=== PATIENT | female | born 1960 | race Caucasian/White ===

== ENCOUNTER → 2016-06-20 | Outpatient (CLI) | payer BC ==
--- NOTE | 2016-06-21 13:51 | MM ---
Reason for exam: screening (asymptomatic). Last mammogram was performed 2 years and 5 months ago. History: Patient is postmenopausal and is nulliparous. Physical Findings: A clinical breast exam by your physician is recommended on an annual basis and results should be correlated with mammographic findings. MG Screening Mammo w CAD Bilateral CC and MLO view(s) were taken. Prior study comparison: January 13, 2014, bilateral MG screening mammo w CAD. April 23, 2007, bilateral digital screening mammogram. The breast tissue is almost entirely fat. Finding: There are typically benign calcifications in both breasts. No significant changes in finding since January 13, 2014 and April 23, 2007. ASSESSMENT: Benign, BI-RAD 2 RECOMMENDATION: Routine screening mammogram of both breasts in 1 year.
== END | disposition home or self-care (01) ==
LOC: RADMAMWWP 07:53
PROVIDERS: ATTEND Family Medicine
DX: Z12.31 Encounter for screening mammogram for malignant neoplasm of breast (principal)

== ENCOUNTER → 2018-01-30 | Outpatient (CLI) | payer BC ==
[~2018-01-30] MED LIST: REGADENOSON 0.4 MG/5 ML SYRINGE IV ONE
--- NOTE | 2018-01-30 11:17 | NM ---
EXAMINATION TYPE: NM stress lexiscan cardiolite DATE OF EXAM: 01/30/2018 COMPARISON: NONE HISTORY: Abnormal EKG per order. History of hypertension presents with chest pain and difficulty erica thing and palpitations per patient. TECHNIQUE: After the intravenous administration of 10.7 mCi Tc 99m Sestamibi - Cardiolite resting SP ECT images acquired 45 minutes post injection. The patient received 0.4mg Lexiscan, 25.3 mCi Tc 99m Sestamibi - Stress images obtained [address] injection FINDINGS: Review of stress and rest SPECT images demonstrates no distinct perfusion abnormality. Gated analysi s shows normal wall motion with an estimated left ventricular ejection fraction of 61 %. IMPRESSION: No scintigraphic evidence for reversible ischemia.
--- NOTE | 2018-01-31 12:41 | ECHOF ---
Referral Reason:R07.9 / R94.31 - Chest Pain / Abnormal EKG MEASUREMENTS -------- HEIGHT: 162.6 cm WEIGHT: 99.8 kg BP: RVIDd: 3.1 cm (< 3.3) IVSd: 1.2 cm (0.6 - 1.1) LVIDd: 4.8 cm (3.9 - 5.3) LVPWd: 1.1 cm (0.6 - 1.1) IVSs: 1.3 cm LVIDs: 3.5 cm LVPWs: 1.4 cm LAESV Index (A-L): 29.86 ml/m Ao Diam: 2.7 cm (2.0 - 3.7) AV Cusp: 1.9 cm (1.5 - 2.6) LA Diam: 3.4 cm (2.7 - 3.8) MV EXCURSION: 17.354 mm (> 18.000) MV EF SLOPE: 116 mm/s (70 - 150) EPSS: 0.6 cm MV E Ronnie: 0.92 m/s MV DecT: 266 ms MV A Ronnie: 0.69 m/s MV E/A Ratio: 1.34 RAP: 5.00 mmHg RVSP: 9.49 mmHg FINDINGS -------- Resting bradycardia (HR<60bpm). This was a technically adequate study. The left ventricular size is normal. There is mild concentric left ventricular hypertrophy. Overa ll left ventricular systolic function is normal with, an EF between 55 - 60 %. The right ventricle is normal in size and function. LA is midly dilated 29-33ml/m2. The right atrium is normal in size. There is mild aortic valve sclerosis. There is no evidence of aortic regurgitation. There is no e vidence of aortic stenosis. The mitral valve leaflets are mildly thickened. There is trace to mild mitral regurgitation. Trace tricuspid regurgitation present. Right ventricular systolic pressure is normal at < 35 mmHg. There is no evidence of pulmonary hypertension. The pulmonic valve was not well visualized. The aortic root size is normal. Normal inferior vena cava with normal inspiratory collapse consistent with estimated right atrial pre ssure of 5 mmHg. There is no pericardial effusion. CONCLUSIONS -------- 1. Resting bradycardia (HR<60bpm). 2. This was a technically adequate study. 3. The left ventricular size is normal. 4. There is mild concentric left ventricular hypertrophy. 5. Overall left ventricular systolic function is normal with, an EF between 55 - 60 %. 6. LA is midly dilated 29-33ml/m2. 7. There is mild aortic valve sclerosis. 8. The mitral valve leaflets are mildly thickened. 9. There is trace to mild mitral regurgitation. 10. Trace tricuspid regurgitation present. 11. Right ventricular systolic pressure is normal at < 35 mmHg. 12. There is no evidence of pulmonary hypertension. 13. The pulmonic valve was not well visualized. 14. The aortic root size is normal. 15. There is no pericardial effusion. FOOD TASTER: Kenan Sipvey RDCS
--- NOTE | 2018-02-01 11:10 | EST ---
EXERCISE STRESS DATE OF SERVICE: 01/30/2018 AGE: 57 SEX: Female HT: 64" WT: 220 pounds PROTOCOL: Lexiscan Cardiolite STAGE: DURATION OF EXERCISE: HEART RATE REST: 57 BLOOD PRESSURE REST: 134/80 MAXIMUM HEART RATE ACHIEVED: 81 MAXIMUM BLOOD PRESSURE: 134/80 85% MPHR: 100% MPHR: METS: INDICATIONS: Abnormal EKG. CLINICAL INFORMATION: A Lexiscan nuclear study was performed. Peak heart rate of 81, was achieved. Maximum blood pressure of 134/80 mmHg was noted. Resting EKG shows normal sinus rhythm with normal WV interval and QRS duration and normal ST-T waves. No ST-segment depression suggestive of ischemia is noted. The results of the nuclear study will follow. MMODL / IJN: [id number] /
--- NOTE | 2018-02-18 19:10 | P.HOLTER ---
Diagnosis Palpitations 24-hour Holter monitor shows sinus rhythm, heart rates are from 53 207 beats a minute average 71 beats a minute occasional PVCs 3 very short runs of atrial tachycardia
== END | disposition home or self-care (01) ==
LOC: RADNMMAIN 08:04
PROVIDERS: ATTEND Family Medicine
DX: I47.1 Supraventricular tachycardia (principal); R07.9 Chest pain, unspecified; R94.31 Abnormal electrocardiogram [ECG] [EKG]
CPT/HCPCS: 93017; 93225; 93226; 93306; 78452; A9500; J2785

== ENCOUNTER → 2018-02-04 | Outpatient (CLI) | payer BC ==
[2018-02-04 08:27] LABS: HCT 38.3 % (34.0-46.0); Hypochromasia Slight; MCH 32.1 pg (25.0-35.0); MCHC 31.4 g/dL (31.0-37.0); MCV 102.1 fL (80.0-100.0); Macrocytosis Slight; Mean Platelet Volume 7.3; Platelet Count 232 k/uL (150-450); RBC 3.75 m/uL (3.80-5.40); RDW 14.9 % (11.5-15.5)
[2018-02-04 08:31] LABS: INR 0.9 (<1.2); Partial Thromboplastin Time 23.2 sec (22.0-30.0); Prothrombin Time 9.9 sec (9.0-12.0)
[2018-02-04 08:42] LABS: ALT 28 U/L (9-52); AST 25 U/L (14-36); Albumin 3.3 g/dL (3.5-5.0); Alkaline Phosphatase 77 U/L (38-126); Anion Gap 5 mmol/L; Blood Urea Nitrogen 19 mg/dL (7-17); Calcium 8.6 mg/dL (8.4-10.2); Carbon Dioxide 25 mmol/L (22-30); Chloride 111 mmol/L (98-107); Glucose 77 mg/dL (74-99); Potassium 4.5 mmol/L (3.5-5.1); Sodium 141 mmol/L (137-145); Total Bilirubin 0.3 mg/dL (0.2-1.3)
== END ==
LOC: LABPAT 07:29
PROVIDERS: ATTEND Orthopaedic Surgery
DX: Z01.812 Encounter for preprocedural laboratory examination (principal); M16.12 Unilateral primary osteoarthritis, left hip
CPT/HCPCS: 36415; 80053; 85027; 85610; 85730; 87070

== ENCOUNTER 2018-02-11 06:33 | Inpatient (IN) | payer BC ==
[2018-02-07 08:54] VITALS: BMI 37.8
[~2018-02-11 06:33] MED LIST changes: +ACETAMINOPHEN TAB 500 MG TAB PO ONE; +LIDOCAINE 1% 20 ML VIAL (10MG/ML) FOR IV START INTRADERMA PRN; +MELOXICAM 7.5 MG TAB PO ONE; +MIDAZOLAM (PF) 2 MG/2 ML VIAL IV PRN; -REGADENOSON 0.4 MG/5 ML SYRINGE IV ONE; +TRANEXAMIC ACID 1,000 MG in SODIUM CHLORIDE 0.9% 50 ML IVPB ONE; +ceFAZolin IN SWFI 2 GM/20 ML SYRINGE IVP ONE; +fentaNYL (PF) 50 MCG/ML 2 ML AMP IV PRN
[2018-02-11] MEDS ORDERED: ROPIVACAINE 246.25 MG, EPINEPHrine 0.5 MG, KETOROLAC 30 MG, cloNIDine HCL/PF 80 MCG, WA... MISCELLANE ONE ×10 (07:50→08:51)
[2018-02-11] MEDS ORDERED: HYDROcodone/APAP 5-325MG 1 EACH TAB PO PRN (09:09)
[2018-02-11] MEDS ORDERED: MAGNESIUM HYDROXIDE 2,400 MG/10 ML CUP PO PRN (09:09)
[2018-02-11] MEDS ORDERED: HYDROmorphone 0.5 MG/0.5 ML SYRINGE IVP PRN ×2 (09:09)
[2018-02-11] MEDS ORDERED: DIAZEPAM 5 MG TAB PO PRN (09:09)
[2018-02-11] MEDS ORDERED: hydrOXYzine PAMOATE 25 MG CAP PO PRN (09:09)
[2018-02-11] MEDS ORDERED: HYDROmorphone 1 MG/ML 1 ML SYRINGE IVP PRN (09:09)
[2018-02-11] MEDS ORDERED: NALOXONE 0.4 MG/ML 1 ML VIAL IV PRN (09:09)
[2018-02-11] MEDS ORDERED: SODIUM CHLORIDE 0.9% 1,000 ML IV SCH (09:15)
[2018-02-11] MEDS: LACTATED RINGERS 1,000 ML IV SCH ×3 (11:50→20:16)
[2018-02-11] MEDS ORDERED: ONDANSETRON 4 MG/2 ML VIAL IVP ONE (11:58)
[2018-02-11] MEDS ORDERED: DEXAMETHASONE SOD PHOSPHATE 10 MG/ML 1 ML VIAL IV ONE (11:59)
[2018-02-11] MEDS ORDERED: SODIUM CHLORIDE 0.9% 100 ML BAG ONE (12:18)
[2018-02-11] MEDS ORDERED: SODIUM CHLORIDE 0.9% IRRIG 1,000 ML BTL IRRIGATION ONE (12:18)
[2018-02-11] MEDS ORDERED: TRANEXAMIC ACID 1,000 MG/10 ML VIAL ONE (12:18)
[2018-02-11] MEDS ORDERED: HEPARIN SODIUM,PORCINE 10,000 UNIT/ML 1 ML VIAL ONE (12:18)
[2018-02-11] MEDS ORDERED: fentaNYL (PF) 50 MCG/ML 2 ML AMP ONE (12:18)
[2018-02-11] MEDS ORDERED: MIDAZOLAM 2 MG/2 ML VIAL ONE (12:18)
[2018-02-11] MEDS ORDERED: PROPOFOL 10 MG/ML 20 ML VIAL IV ONE (12:18)
[2018-02-11] MEDS ORDERED: ceFAZolin 3,000 MG in SODIUM CHLORIDE 0.9% IRRIGATIO 3,000 ML IRRIGATION ONE (12:59)
[2018-02-11] MEDS ORDERED: LACTATED RINGERS 1,000 ML IV ONE (14:17)
--- NOTE | 2018-02-11 14:26 | P.OP ---
Date of Procedure: 02/11/18 Preoperative Diagnosis: Severe osteoarthritis left hip Postoperative Diagnosis: Severe osteoarthritis left hip Procedure(s) Performed: Left total hip arthroplasty with a direct anterior approach Implants: Knight and nephew Polarstem size 6 standard Knight & Nephew R3, 3 hole acetabular shell, 48 mm Knight [employer] Nephew reflection 6.5 mm cancellus screw, 20 mm 2 Knight [employer] Nephew R3, XLPE 20 acetabular liner Knight & Nephew Oxinium femoral head 32 m, -3 All components were press-fit. The articulation is Oxinium on polyethylene. Anesthesia: spinal Surgeon: Fercho Ba District Manager Primary Care Sales #1: Linda Palma Estimated Blood Loss (ml): 400 (141 mL returned with Cell Saver) Pathology: other (Femoral head) Condition: stable Disposition: PACU Indications for Procedure: After failure of conservative treatment we discussed the surgical and nonsurgical treatment options at length. Patient wishes to proceed with a total hip arthroplasty with a direct anterior approach. Complications specific to this procedure were discussed at length, including but not limited to infection, leg length discrepancy, dislocation, and nerve injury. Patient is aware of all these complications and informed consent was obtained Operative Findings: The operative findings are consistent with severe osteoarthritis of the left hip Description of Procedure: Patient was seen and evaluated in the preoperative area, consent was reviewed, and the surgical site was marked with a skin marker. Patient was then brought to the operating room and given prophylactic antibiotics intravenously. 1 g of Tranexamic acid was also given. A spinal anesthetic was administered by the anesthesia department. The patient was then placed on the [place] table with the bony prominences well-padded. The hip area was then prepped and draped in usual sterile fashion. A universal timeout was then performed, which confirmed the patient's name, surgical site, ALLERGIES, and procedure being performed. Next the incision site was located at 1 cm distal and 1 cm lateral to the anterior superior iliac spine. The skin and subcutaneous tissues were sharply incised. Incision was carefully dissected down to the fascia overlying the tensor fascia laquita muscle. This fascia was then incised in line with the incision. Next, using blunt finger dissection, the tensor fascia laquita muscle was dissected off its investing fascia. The muscle was then carefully retracted laterally with a cobra retractor over the lateral neck of the femur. Next, the circumflex vessels were identified and cauterized using the AquaMantis device. The anterior hip capsule was then exposed. The capsule was then opened and an inverted T fashion. Cobra retractors were then placed intracapsularly. The proximal femur was then visualized. The femoral neck was then osteotomized appropriate level above the lesser trochanter. Small amount of traction was placed with the [place] table. A small wedge of bone was then removed from the remaining femoral head. Next, using a corkscrew femoral head was easily removed from the acetabulum. On gross visual inspection, the femoral head had complete loss of articular cartilage in multiple periarticular osteophytes. Attention was then turned to the acetabulum. the acetabulum was exposed and any remaining labrum was excised. Sequential reaming of the acetabulum was performed using fluoroscopic guidance. When the appropriate size was reached, a trial was then placed. The position and fit of the trial was checked with fluoroscopy. The trial was then removed. Then, using fluoroscopic guidance, the final implant was impacted at 20 of anteversion and 40 of abduction, and fully seated in the acetabulum. 2 screws were then placed in the acetabulum. Again fluoroscopy was used to check position of the screws. Next, the liner was then impacted, with a 20 elevated liner located in the anterior superior quadrant. Component locking was confirmed. Attention was then directed to the femur. With the aid of the [place] table, the femur was externally rotated to approximately 130, extended, and abducted under the opposite leg. A side hook was then placed under the proximal femur, and the side hook elevator was used to elevate the proximal femur. Retractors were then placed. A capsular release was performed, as well as a release of the conjoined tendon, which afforded excellent visualization of the proximal femur. Next, a box osteotome was used to lateralize the proximal femur. A brush hand was then used to locate the femoral canal. Sequential broaching was then performed with appropriate size which afforded excellent fixation in the proximal femur. A trial was then placed with appropriate head and neck, and the hip was gently reduced with the aid of the [place] table. Fluoroscopy was then used to check position of the components, as well as to ensure equal leg lengths. The hip was then gently dislocated and the trials were then removed. Final implants were then impacted and the hip was again reduced. Final fluoroscopic x-rays confirmed that the components were in anatomic position, as well as equal leg lengths. The hip was also taken through range of motion, and found to be stable. The hip was then copiously irrigated with antibiotic solution with pulsatile lavage. The hip was then irrigated with Irrisept solution. The soft tissues were then injected with a ropivacaine solution, which consisted of 246.25 mg of ropivacaine, 0.5 mg of epinephrine, 30 mg of Toradol, 80 g of clonidine, and 48.45 mL of sterile water, for a total of 100 mL of fluid injected. A second dose of 1 g of Tranexamic acid was also given. the fascia was then closed with 2-0 strata fix suture. The subcutaneous tissue was closed with 3-0 Vicryl. The subcuticular tissue was closed with 3-0 strata fix suture. The skin was then closed with Dermabond glue and a sterile silver dressing. The patient was then transferred to the recovery room in stable condition. The operations administrative assistant MARK Houston was required due to the complexity of surgery, and the need for skilled campus administrative assistant for positioning, draping, exposure, retraction, and closure of the wound.
--- NOTE | 2018-02-11 14:50 | XR ---
EXAMINATION TYPE: XR Hip Limited LT DATE OF EXAM: 02/11/2018 COMPARISON: NONE HISTORY: 57-year-old female status post hip surgery, assess surgical alignment TECHNIQUE: AP portable view FINDINGS: Image shows placement of left hip total arthroplasty. Both acetabular cup and femoral short stemmed c omponents of the prosthesis appear well seated without periprosthetic fracture. Alignment grossly santo tomic. Soft tissue air related to recent operation. IMPRESSION: Uncomplicated postoperative appearance left total hip arthroplasty.
--- NOTE | 2018-02-11 16:14 | XR ---
EXAMINATION TYPE: XR Hip Limited LT, FL guidance operating room DATE OF EXAM: 02/11/2018 COMPARISON: NONE HISTORY: 57 year-old female left anterior total hip FINDINGS: Fluoroscopic images show placement of left hip total arthroplasty. A right hip total arthroplasty is partially visualized on the low AP view. FLUOROSCOPY Fluoroscopy time of 50 seconds was used during anterior left hip replacement. 2 image/s document/s t he procedure. IMPRESSION: Intraoperative fluoroscopy as above.
[2018-02-11] MEDS: HYDROcodone/APAP 5-325MG 1 EACH TAB PO PRN (18:40)
[2018-02-11] MEDS: ASPIRIN 325 MG TAB PO SCH (20:14)
[2018-02-11] MEDS: ceFAZolin IN SWFI 2 GM/20 ML SYRINGE IVP SCH (20:18)
[2018-02-11] MEDS ORDERED: LEVOTHYROXINE 50 MCG TAB PO SCH (21:00)
[2018-02-11] MEDS ORDERED: SENNOSIDES-DOCUSATE SODIUM 1 EACH TAB PO SCH (21:00)
[2018-02-11] MEDS ORDERED: clonazePAM 0.5 MG TAB PO SCH (21:00)
[2018-02-11] MEDS ORDERED: PROGESTERONE MICRONIZED 200 MG PO SCH (21:00)
--- NOTE | 2018-02-12 01:07 | CONS ---
CONSULTATION DATE OF SERVICE: 02/11/2018 REASON FOR CONSULTATION: Advice regarding fibromyalgia, hypertension, multiple medical issues requested by Dr. Ba. HISTORY OF PRESENT ILLNESS: This 57-year-old gentleman with a past medical history of multiple medical problems such as fibromyalgia, GERD, hypertension, DJD, hypothyroidism, underwent left total hip joint arthroplasty for severe DJD today by Dr. Ba. There is no history of fever, rigors or chills. No history of headache, loss of consciousness, chest pain, palpitations, hematochezia, melena, nausea and diarrhea at this time. The patient is followed by Dr. Paula in the outpatient setting. PAST MEDICAL HISTORY: Fibromyalgia, GERD, hypertension, DJD, sleep apnea, bariatric surgery, appendectomy. MEDICATIONS PRIOR TO ADMISSION: Home medications are: 1. Klonopin 0.5 mg q.h.s. 2. Progesterone 200 mg q.h.s. 3. Omeprazole 20 mg q.a.m. 4. Naprosyn 500 mg q.h.s. 5. Lisinopril 20 mg q.a.m. 6. Synthroid 50 mcg p.o. q.h.s. 7. Neurontin 300 mg p.o. daily. 8. Cymbalta 120 mg p.o. q.a.m. 9. Biotin 1 tablet p.o. 10.Biotin 150 mg. 11.Atenolol 100 mg p.o. q.a.m. 12.Senokot 1 tablet p.o. b.i.d. 13.Hydrocortisone 5 mg 1 tablets q.4h p.r.n. ALLERGIES: None. FAMILY HISTORY: Dementia, history of Parkinson's, diabetes mellitus. SOCIAL HISTORY: No history of smoking. No history of alcohol intake. REVIEW OF SYSTEMS: ENT: No diminished vision. No diminished hearing. CARDIOVASCULAR: No angina or palpitations. RESPIRATORY: As mentioned earlier. GI no nausea or vomiting. no dysuria. NERVOUS SYSTEMS: No numbness or weakness. ALLERGIES/IMMUNOLOGY: No asthma or hayfever. MUSCULOSKELETAL as mentioned earlier. HEMATOLOGY/ONCOLOGY: No history of anemia. ENDOCRINE: No history of diabetes or hypothyroidism. CONSTITUTIONAL: As mentioned earlier. Dermatology: Negative. Rheumatology: Negative. Psychiatry: As mentioned earlier. PHYSICAL EXAMINATION: The patient is alert and oriented times three. Pulse 66. Blood pressure 113/59, respirations 17, temp 98.2, pulse ox 97% on room air. HEENT: Conjunctivae normal. Oral mucosa moist. NECK: No jugular venous distention. CARDIOVASCULAR: S1, S2 muffled. RESPIRATORY: Breath sounds diminished in the bases. Few scattered rhonchi and crackles. ABDOMEN: Soft, nontender. No mass palpable. LEGS: Status post surgery. NERVOUS SYSTEM: Higher functions as mentioned earlier. Moves all 4 limbs. No focal motor deficits. SKIN: No ulcer, rash or bleeding. LABS: The previous labs are reviewed. New labs are not available. ASSESSMENT: 1. Status post left total hip joint arthroplasty. 2. History of fibromyalgia. 3. Hypertension. 4. History of gastroesophageal reflux disease. 5. Sleep apnea. 6. Hypothyroidism. 7. History of bariatric surgery. 8. History of degenerative joint disease. 9. History of depression. RECOMMENDATIONS AND DISCUSSION: In this 57-year-old woman who presented with multiple complex medical issues, at this time, I recommend to continue current medications, management and symptomatic treatment. We will initiate home dose of antihypertensive medications including Tenormin and DVT prophylaxis. Incentive spirometry. We will follow the patient closely. The patient may be asked to follow up with primary physician closely after discharge. Thank you Dr. Ba for letting us participate in the care of this patient. MMODL / IJN: [id number] /
[2018-02-12 01:09] VITALS: RESP 16
[2018-02-12] MEDS: HYDROcodone/APAP 5-325MG 1 EACH TAB PO PRN ×3 (01:34→11:30)
[2018-02-12] MEDS: ceFAZolin IN SWFI 2 GM/20 ML SYRINGE IVP SCH (01:35)
[2018-02-12] MEDS ORDERED: PANTOPRAZOLE 40 MG TABLET PO SCH (07:30)
[2018-02-12 08:14] LABS: Basophils % (A) 0 %; Eosinophils # (A) 0.1 k/uL (0-0.7); Eosinophils % (A) 1 %; HCT 33.2 % (34.0-46.0); HGB 10.5 gm/dL (11.4-16.0); Hypochromasia Slight; Lymphocytes # (A) 1.4 k/uL (1.0-4.8); Lymphocytes % (A) 14 %; MCH 32.2 pg (25.0-35.0); MCHC 31.7 g/dL (31.0-37.0); MCV 101.5 fL (80.0-100.0); Macrocytosis Slight; Mean Platelet Volume 7.6; Monocytes # (A) 0.6 k/uL (0-1.0); Monocytes % (A) 6 %; Neutrophils # (A) 8.1 k/uL (1.3-7.7); Neutrophils % (A) 79 %; Platelet Count 223 k/uL (150-450); RBC 3.27 m/uL (3.80-5.40); RDW 14.7 % (11.5-15.5); WBC 10.2 k/uL (3.8-10.6)
[2018-02-12] MEDS ORDERED: LISINOPRIL 20 MG TAB PO SCH (09:00)
[2018-02-12] MEDS ORDERED: BIOTIN PO SCH (09:00)
[2018-02-12] MEDS ORDERED: MELOXICAM 7.5 MG TAB PO SCH (09:00)
[2018-02-12] MEDS ORDERED: ATENOLOL 50 MG TAB PO SCH (09:00)
[2018-02-12] MEDS ORDERED: DULoxetine HCL 60 MG CAPSULE.DR PO SCH (09:00)
[2018-02-12] MEDS ORDERED: GABAPENTIN 300 MG CAP PO SCH (09:00)
--- NOTE | 2018-02-12 09:37 | P.DS ---
Providers Date of admission: 02/11/18 10:24 Expected date of discharge: 02/12/18 Attending physician: Fercho Ba Consults: 02/11/18 09:09 Consult Physician Routine Consulting Provider: Gasper Hatch Consult Reason/Comments: medical management Do you want consulting provider notified?: Already Contacted Primary care physician: Ferdinand Paula - Discharge Diagnosis(es) (1) Status post total hip replacement, left Current Visit: Yes Status: Acute (2) Primary osteoarthritis of left hip Current Visit: Yes Status: Acute (3) Primary localized osteoarthritis of left hip Current Visit: Yes Status: Acute Hospital Course: This is a 57-year-old female with known history of degenerative arthritis of the left hip. The patient presents for evaluation. After discussion and consideration patient elects to proceed with total hip arthroplasty. The patient is seen preoperatively by Dr. Ba and medically cleared for surgery by their primary care physician. Patient is admitted to [facility] on 02/11/2018 for total hip arthroplasty. The procedures performed without complication or sequelae. The patient is doing well postoperatively. Labs and vital signs are stable on day of discharge. On day of discharge patient's hip incision is healing well. There is minimal erythema. There is no drainage noted at this time. There is minimal soft tissue swelling to the hip and thigh. Patient has full foot and ankle motion without difficulty or pain. Neurovascular status to the left lower extremity is intact. Patient is discharged home in good condition. Please see med rec for accurate list of home medications. Plan - Discharge Summary Discharge Rx Participant: No New Discharge Prescriptions: New HYDROcodone/APAP 5-325MG [[place] 5-325] 1 - 2 tab PO Q4-6H PRN #84 tab PRN Reason: Pain Aspirin 325 mg PO BID #60 tab Sennosides [Senokot] 1 tab PO BID #60 tablet No Action Lisinopril 20 mg PO QAM Omeprazole 20 mg PO QAM DULoxetine HCL [Cymbalta] 120 mg PO QAM Progesterone, Micronized [Progesterone] 200 mg PO HS Naproxen 500 mg PO HS Gabapentin [Neurontin] 300 mg PO DAILY clonazePAM 0.5 mg PO HS Levothyroxine Sodium [Synthroid] 50 mcg PO HS Biotin 150 mg PO DAILY Atenolol 100 mg PO QAM Biotin A D K 1 tab PO DAILY Discharge Medication List Lisinopril 20 mg PO QAM 07/02/15 [History] Omeprazole 20 mg PO QAM 12/03/15 [History] Atenolol 100 mg PO QAM 02/07/18 [History] Biotin 150 mg PO DAILY 02/07/18 [History] Biotin A D K 1 tab PO DAILY 02/07/18 [History] DULoxetine HCL [Cymbalta] 120 mg PO QAM 02/07/18 [History] Gabapentin [Neurontin] 300 mg PO DAILY 02/07/18 [History] Levothyroxine Sodium [Synthroid] 50 mcg PO HS 02/07/18 [History] Naproxen 500 mg PO HS 02/07/18 [History] Progesterone, Micronized [Progesterone] 200 mg PO HS 02/07/18 [History] clonazePAM 0.5 mg PO HS 02/07/18 [History] Aspirin 325 mg PO BID #60 tab 02/11/18 [Rx] HYDROcodone/APAP 5-325MG [[place] 5-325] 1 - 2 tab PO Q4-6H PRN #84 tab 02/11/18 [ Rx] Sennosides [Senokot] 1 tab PO BID #60 tablet 02/11/18 [Rx] Follow up Appointment(s)/Referral(s): Fercho Ba DO [Doctor of Osteopathic Medicine] - 2 Weeks Activity/Diet/Wound Care/Special Instructions: Weightbearing as tolerated with walker. Leave dressing intact. Dressing may be removed by home care nurse in 10 days. May shower with dressing on. [facility] follow[facility]up with [facility] in 2 weeks and call with any questions or concerns [phone]. Discharge Disposition: HOME WITH HOME HEALTH SERVICES
[2018-02-12 10:55] VITALS: BP 112/69; PULSE 66; TEMP 98.4
[2018-02-12] MEDS: ASPIRIN 325 MG TAB PO SCH (10:56)
--- NOTE | 2018-02-13 08:08 | PN ---
PROGRESS NOTE DATE OF SERVICE: 02/12/2018 This 57-year-old woman who was admitted after left total hip joint arthroplasty, improving significantly. No chest pain or palpitation. No fever. PHYSICAL EXAMINATION: On examination, alert and oriented x3. Pulse 66, blood pressure 112/69, respirations 16, temperature 98.4, pulse ox 97% on room air. HEENT: Conjunctivae normal. NECK: No jugular venous distention. CARDIOVASCULAR: S1, S2 muffled. RESPIRATORY: Breath sounds diminished at the bases. No rhonchi, no crackles. ABDOMEN: Soft, nontender. No mass palpable. LEGS: Status post surgery. NERVOUS SYSTEM: No focal deficits. LABS: WBC 10.2, hemoglobin is 10.5. ASSESSMENT: 1. Status post left total hip joint arthroplasty. 2. History of fibromyalgia. 3. Hypertension. 4. History of gastroesophageal reflux disease. 5. History of sleep apnea. 6. History of hypothyroidism. 7. History of bariatric surgery. 8. History of degenerative joint disease. 9. History of depression. RECOMMENDATIONS AND DISCUSSION: Recommend to continue current medications, continues symptomatic treatment. Recommend to resume the home medications. Follow up closely with primary physician. Incentive spirometry. DVT prophylaxis. The rest of recommendations follow with Orthopedic Surgery. Further recommendations to follow. MMODL / IJN: [id number] /
== END 2018-02-12 13:27 | disposition home health service (06) | DRG 470 ==
LOC: 2ORMAIN 10:24 → 4SSUR 15:09
PROVIDERS: ADMIT Orthopaedic Surgery; ATTEND Orthopaedic Surgery
PROC: 30233N0 Transfusion of Autologous Red Blood Cells into Peripheral Vein, Percutaneous Approach (ICD-10-PCS; 2018-02-11)
PROC: 0SRB06A Replacement of Left Hip Joint with Oxidized Zirconium on Polyethylene Synthetic Substitute, Uncemented, Open Approach (ICD-10-PCS; principal; 2018-02-11 12:30)
DX: M16.12 Unilateral primary osteoarthritis, left hip (principal); E03.9 Hypothyroidism, unspecified; G47.30 Sleep apnea, unspecified; I10 Essential (primary) hypertension; K21.9 Gastro-esophageal reflux disease without esophagitis; M79.7 Fibromyalgia; F32.9 Major depressive disorder, single episode, unspecified; H26.9 Unspecified cataract; Z79.890 Hormone replacement therapy; Z79.52 Long term (current) use of systemic steroids; Z79.899 Other long term (current) drug therapy; Z90.49 Acquired absence of other specified parts of digestive tract; Z98.84 Bariatric surgery status; Z83.3 Family history of diabetes mellitus; Z82.49 Family history of ischemic heart disease and other diseases of the circulatory system
CPT/HCPCS: 73501; 85025; 86850; 86891; 86900; 86901; 88300

== ENCOUNTER → 2018-04-02 | Outpatient (CLI) | payer BC ==
--- NOTE | 2018-04-02 09:00 | CT ---
EXAMINATION TYPE: CT ankle LT wo con DATE OF EXAM: 04/02/2018 COMPARISON: None HISTORY: 57 year-old female left ankle pain TECHNIQUE: Contiguous axial scanning of the left ankle without IV contrast. Coronal and sagittal good nstructions performed. CT DLP: 191.9 mGycm Automated exposure control for dose reduction was used. FINDINGS: There is end-stage degenerative change of the tibiotalar joint with hindfoot varus and secondary prom inent protrusion of the medial talar dome into the mid tibial articular surface, for example, refer t o coronal image 33. Medial sided loose bodies are present measuring up to 1.4 cm, exact donor site is not clear. Additional corticated bone fragments below the medial malleolus measure up to 9 mm and li anna represent chronic ununited fracture fragments. There is significant narrowing between the lateral talar process and angle of [place] at the lateral hindfoot suggesting some degree of extra-articular lateral hindfoot impingement as well. There is hypertrophied bone located posterior to the talus and superolateral to the posterior calcane us measuring 3.4 x 1.8 x 3.2 cm. Exact etiology is unclear. This is too large to represent an os trig onum but is in the characteristic location. There is bony hypertrophy of the peroneal tubercle lateral hindfoot. Degenerative changes seen within the mid foot particularly at the second and third TMT joints as well as the fourth and fifth intermetatarsal joints. Small type I accessory navicular. Medially, there is prominent bony hypertrophy which seems to surround the flexor digitorum longus at the level of the medial malleolus. Refer to axial image 41. Degenerative changes of the posterior subtalar joint especially laterally. Bulky dorsal talar spurring. IMPRESSION: 1. END STAGE DEGENERATIVE CHANGE TIBIOTALAR JOINT WITH HINDFOOT VARUS CAUSING ABNORMAL ARTICULATION O F THE MEDIAL TALAR DOME INTO THE MID TIBIAL ARTICULAR SURFACE. 2. SOME DEGREE OF EXTRA-ARTICULAR, LATERAL HINDFOOT IMPINGEMENT WELL GIVEN NARROWING BETWEEN THE L ATERAL TALAR PROCESS AND ANGLE OF GISSANE. 3. OSTEOARTHROSIS LATERAL ASPECT OF THE POSTERIOR SUBTALAR JOINT. ADDITIONAL SCATTERED MIDFOOT OSTEOA RTHROSIS WELL. 4. BULKY DORSAL TALAR HEAD/NECK SPURRING, A LARGE 3.4 CM BONE FRAGMENT POSTERIORLY OF UNCERTAIN ETIOL OGY, TOO LARGE TO REPRESENT AN OS TRIGONUM, AND A NUMBER OF MEDIAL SIDED LOOSE BODIES MEASURING UP TO 1.4 CM. 5. HYPERTROPHIED PERONEAL TUBERCLE AND ADDITIONAL BONY HYPERTROPHY PARTIALLY ENCASING THE FLEXOR DIGI TORUM LONGUS AT THE LEVEL OF THE MEDIAL MALLEOLUS.
== END | disposition home or self-care (01) ==
LOC: RADCTMAIN 07:53
PROVIDERS: ATTEND Orthopaedic Surgery
DX: M19.072 Primary osteoarthritis, left ankle and foot (principal); M89.372 Hypertrophy of bone, left ankle and foot

== ENCOUNTER → 2018-12-12 | Outpatient (CLI) | payer BC ==
--- NOTE | 2018-12-12 16:29 | BD ---
EXAMINATION TYPE: Axial Bone Density DATE OF EXAM: 12/12/2018 COMPARISON: NONE CLINICAL HISTORY: 57-year-old female postmenopausal screening Height: 5FT 3 1/2 IN Weight: 234 FRAX RISK QUESTIONS: Secondary Osteoporosis: 3. Menopause before 45: YES Rheumatoid Arthritis: YES RISK FACTORS HISTORY OF: Surgery to Spine/Hip(right/left)/Wrist (right/left): BARON HIP REPLACEMENT When: 2017AND 2018 Active: NO Postmenopausal woman: AGE 43 Take estrogen and/or progesterone medications: PELLET TX How lon YEARS Lost more than 2 inches in height since high school: YES MEDICATIONS: Thyroid Medications: YES Which medication: LEVOTHYROXINE How Lon YEAR Additional Medications: HRT, LEVOTHYROXINE, BYSTOLIC, CYMBALTA, LISINOPRIL, IBUPROFEN, Additional History: EXAM MEASUREMENTS: Bone mineral densitometry was performed using the [employer] System. Bone mineral density as measured about the Lumbar spine is: ----- L1-L4(G/cm2): 1.616 T Score Values are as follows: ----- L2: 3.6 ----- L3: 4.1 ----- L4: 3.9 ----- L1-L4: 3.6 Bone mineral density has: INCREASED 12.0% SINCE STUDY OF 2014 Bone mineral density about the L Wrist (g/cm2): 0.579 T Score values are as follows: -----Dist. R+U: 1.0 -----Prox. R+U: -1.5 -----Radius total: -1.6 FIRST TIME WRIST WAS DONE IMPRESSION: Osteopenia (T Score between -2.5 and -1). There is slightly increased risk of fracture and the patient may be considered for treatment. Re-Screen 2-5 years. NOTE: T-SCORE=SD OF THE YOUNG ADULT MEAN.
--- NOTE | 2018-12-13 14:02 | MM ---
Reason for exam: screening (asymptomatic). Last mammogram was performed 2 years and 6 months ago. History: Patient is postmenopausal and is nulliparous. Family history of breast cancer in paternal cousin at age 58. Took hormonal contraceptives for 15 years. Taking other hormone for 2 years. Physical Findings: A clinical breast exam by your physician is recommended on an annual basis and results should be correlated with mammographic findings. MG 3D Screening Mammo W/Cad Bilateral CC and MLO view(s) were taken. Prior study comparison: June 20, 2016, bilateral MG screening mammo w CAD. January 13, 2014, bilateral MG screening mammo w CAD. The breast tissue is almost entirely fat. Finding: There is a typically benign 2 mm circumscribed round mass located 4 cm from the nipple in the left breast. New finding since June 20, 2016. ASSESSMENT: Incomplete: need additional imaging evaluation, BI-RAD 0 RECOMMENDATION: Ultrasound of the right breast. [facility] will attempt to contact patient to return for ultrasound.
== END | disposition home or self-care (01) ==
LOC: RADMAMWWP 14:45
PROVIDERS: ATTEND Family Medicine
DX: Z12.31 Encounter for screening mammogram for malignant neoplasm of breast (principal); M85.88 Other specified disorders of bone density and structure, other site; Z78.0 Asymptomatic menopausal state
CPT/HCPCS: 77063; 77067; 77080

== ENCOUNTER → 2018-12-27 | Outpatient (CLI) | payer BC ==
--- NOTE | 2018-12-27 14:01 | USB ---
Reason for exam: additional evaluation requested from abnormal screening. History: Patient is postmenopausal and is nulliparous. Family history of breast cancer in paternal cousin at age 58. Took hormonal contraceptives for 15 years. Taking other hormone for 2 years. Physical Findings: Nurse did not find any significant physical abnormalities on exam. US Breast Workup Limited LT Left limited breast ultrasound including focal area of concern, retroareolar and axilla demonstrates a 0.2 x 0.2 x 0.2cm lesion too small to characterize at 3 o'clock, likely a very small cyst. These results were verbally communicated with the patient and result sheet given to the patient on 12/27/18. ASSESSMENT: Probably benign, BI-RAD 3 RECOMMENDATION: Ultrasound of the left breast in 6 months.
== END | disposition home or self-care (01) ==
LOC: RADUSWWP 12:40
PROVIDERS: ATTEND Family Medicine
DX: R92.8 Other abnormal and inconclusive findings on diagnostic imaging of breast (principal)

== ENCOUNTER → 2019-07-22 | Outpatient (CLI) | payer BC ==
--- NOTE | 2019-07-22 09:43 | USB ---
Reason for exam: follow-up at short interval from prior study. History: Patient is postmenopausal and is nulliparous. Family history of breast cancer in paternal cousin at age 58. Took hormonal contraceptives for 15 years. Taking other hormone for 2 years. Physical Findings: Nurse did not find any significant physical abnormalities on exam. US Breast Limited LT Left limited breast ultrasound including focal area of concern, retroareolar and axilla demonstrates no cystic or solid lesion seen. These results were verbally communicated with the patient and result sheet given to the patient on 07/22/19. ASSESSMENT: Probably benign, BI-RAD 3 RECOMMENDATION: Follow-up diagnostic mammogram of both breasts in 4 months. Back on schedule for November 2019.
== END | disposition home or self-care (01) ==
LOC: RADUSWWP 08:35
PROVIDERS: ATTEND Family Medicine
DX: N60.02 Solitary cyst of left breast (principal)

== ENCOUNTER → 2020-01-27 | Outpatient (CLI) | payer BC ==
--- NOTE | 2020-01-27 10:45 | MM ---
Reason for exam: additional evaluation requested from prior study. Last mammogram was performed 1 year and 1 month ago. History: Patient is postmenopausal and is nulliparous. Family history of breast cancer in paternal cousin at age 58. Took hormonal contraceptives for 15 years. Took estrogen for 2 years beginning at age 57. Took progesterone for 2 years beginning at age 57. Taking other hormone for 2 years. Physical Findings: Nurse did not find any significant physical abnormalities on exam. MG Diagnostic Mammo w CAD BARON Bilateral CC and MLO view(s) were taken. Prior study comparison: December 12, 2018, bilateral MG 3d screening mammo w/cad. June 20, 2016, bilateral MG screening mammo w CAD. There is chronic nodularity in the left breast. No significant new findings when compared with previous films. These results were verbally communicated with the patient and result sheet given to the patient on 01/27/20. ASSESSMENT: Benign, BI-RAD 2 RECOMMENDATION: Routine screening mammogram of both breasts in 1 year.
== END | disposition home or self-care (01) ==
LOC: RADMAMWWP 09:21
PROVIDERS: ATTEND Family Medicine
DX: R92.8 Other abnormal and inconclusive findings on diagnostic imaging of breast (principal)
CPT/HCPCS: 77066

== ENCOUNTER → 2023-05-18 | Outpatient (CLI) | payer BC ==
--- NOTE | 2023-05-21 12:27 | MM ---
Reason for Exam: Screening (asymptomatic). Last mammogram was performed 3 year(s) and 4 month(s) ago. Patient History: Menarche at age 10. Patient has no children. Left ovary removed at age 22. Hysterectomy at age 41. Postmenopausal. Estrogen for 2 years from age 57 until age 59. Progesterone for 2 years from age 57 until age 59. Patient used Hormonal Contraceptives for 15 years. Paternal cousin had breast cancer, age 58. Risk Values: Luiza 5 year model risk: 1.8%. NCI Lifetime model risk: 7.2%. Prior Study Comparison: 06/20/2016 Bilateral Screening Mammogram, [facility]. 12/12/2018 Bilateral Screening Mammogram, [facility]. 01/27/2020 Bilateral Diagnostic Mammogram, [facility]. Tissue Density: The breasts are heterogeneously dense, which may obscure small masses. Findings: Analyzed By CAD. There is no suspicious group of microcalcifications or new suspicious mass in either breast. Stable benign-appearing calcifications. Benign-appearing lymph nodes noted. Overall Assessment: Benign, BI-RAD 2 Management: Screening Mammogram of both breasts in 1 year. . Patient should continue monthly self-breast exams. A clinical breast exam by your physician is recommended on an annual basis. This exam should not preclude additional follow-up of suspicious palpable abnormalities. Note on Luiza scores and lifetime risk: 1. A Luiza score greater than 3% is considered moderate risk. If this is the case, consider specialist referral to assess eligibility for a risk reducing agent. 2. If overall lifetime risk for the development of breast cancer is 20% or higher, the patient may qualify for future screening with alternating mammogram and breast MRI. Electronically signed and approved by: Mahesh Raygoza M.D. [facility]
== END | disposition home or self-care (01) ==
LOC: RADMAMWWP 12:01
PROVIDERS: ATTEND Family Medicine
DX: Z12.31 Encounter for screening mammogram for malignant neoplasm of breast (principal); Z80.3 Family history of malignant neoplasm of breast; Z78.0 Asymptomatic menopausal state
CPT/HCPCS: 77063; 77067